=== PATIENT | female | born 1950 | race African-American/Black ===

== ENCOUNTER 2017-01-10 19:00 | Emergency (ER) | payer OTHER ==
[~2017-01-10] VITALS: Ht 165.1 cm; Wt 70.0 kg
[2017-01-10] MEDS ORDERED: ACETAMINOPHEN WITH CODEINE 300/30MG TABLET PO ONE (21:00)
[2017-01-10 22:08] VITALS: BP 156/69
== END 2017-01-10 22:10 | disposition home or self-care (01) ==
LOC: ER 19:12
DX: M25.512 Pain in left shoulder (principal); M25.562 Pain in left knee; M25.561 Pain in right knee; E11.9 Type 2 diabetes mellitus without complications; I10 Essential (primary) hypertension; Z88.0 Allergy status to penicillin; V43.52XA Car driver injured in collision with other type car in traffic accident, initial encounter; Y93.9 Activity, unspecified; Y92.410 Unspecified street and highway as the place of occurrence of the external cause
CPT/HCPCS: 73030; 99284; Z7610